=== PATIENT | female | born 1930 | race Caucasian/White ===

== ENCOUNTER 2016-08-07 14:05 | Outpatient (CLI) | payer MEDICARE, OTHER ==
[2016-08-08] MEDS ORDERED: SODIUM CHLORIDE 0.9% 500ML 500 ML IVS ONE (07:15)
[2016-08-08] MEDS ORDERED: ACETAMINOPHEN 325 MG TAB PO ONE (08:10)
[2016-08-08] MEDS ORDERED: diphenhydrAMINE HCL 50 MG/ML VIAL IV ONE (08:25)
[2016-08-08 12:37] VITALS: O2SAT 100
[2016-08-08 14:15] VITALS: BP 130/77; TEMP 99.8
== END 2016-08-08 14:15 | disposition home or self-care (01) ==
LOC: TXRM 14:05
PROVIDERS: ATTEND Family Medicine
PROC: 30233N1 Transfusion of Nonautologous Red Blood Cells into Peripheral Vein, Percutaneous Approach (ICD-10-PCS; principal; 2016-08-08 07:30)
DX: D64.89 Other specified anemias (principal)
CPT/HCPCS: 36415; 36430; 86850; 86900; 86901; 86922; 87798; J1200; J7040; P9016

== ENCOUNTER → 2016-08-24 | Outpatient (CLI) | payer MEDICARE, OTHER ==
[~2016-08-24] MED LIST: ACETAMINOPHEN 325 MG TAB PO ONE; SODIUM CHLORIDE 0.9% 500ML 500 ML IVS ONE; diphenhydrAMINE HCL 50 MG/ML VIAL IV ONE
[2016-08-25 06:05] VITALS: BP 126/74; TEMP 98.5; O2SAT 100
== END | disposition home or self-care (01) ==
LOC: TXRM 15:29
PROVIDERS: ATTEND Family Medicine
DX: D64.9 Anemia, unspecified (principal)
CPT/HCPCS: 36415; 86850; 86900; 86901; 86922; J1200; J7040; P9016

== ENCOUNTER 2016-09-12 10:13 | Outpatient (CLI) | payer MEDICARE, OTHER ==
[2016-09-12] MEDS ORDERED: SODIUM CHLORIDE 0.9% 500ML 500 ML IVS ONE (10:48)
[2016-09-12] MEDS ORDERED: ACETAMINOPHEN 325 MG TAB PO ONE (11:22)
[2016-09-12] MEDS ORDERED: diphenhydrAMINE HCL 50 MG/ML VIAL IV ONE (12:25)
[2016-09-12 18:39] VITALS: BP 127/74; TEMP 97.9; O2SAT 100
== END 2016-09-12 18:20 | disposition home or self-care (01) ==
LOC: AMB 10:13
PROVIDERS: ATTEND Family Medicine
PROC: 30233N1 Transfusion of Nonautologous Red Blood Cells into Peripheral Vein, Percutaneous Approach (ICD-10-PCS; principal; 2016-09-12 10:15)
DX: D50.8 Other iron deficiency anemias (principal)
CPT/HCPCS: 36415; 36430; 86850; 86900; 86901; 86922; G0463; J1200; J7040; P9016

== ENCOUNTER 2016-10-17 11:30 | Outpatient (CLI) | payer MEDICARE, OTHER ==
[2016-10-17] MEDS ORDERED: diphenhydrAMINE HCL 50 MG/ML VIAL IV ONE (14:17)
[2016-10-17] MEDS: diphenhydrAMINE HCL 50 MG/ML VIAL IV ONE (14:18)
[2016-10-17] MEDS: ACETAMINOPHEN 325 MG TAB PO ONE (14:18)
[2016-10-17] MEDS ORDERED: ACETAMINOPHEN 325 MG TAB PO ONE (14:18)
[2016-10-17] MEDS ORDERED: SODIUM CHLORIDE 0.9% 500ML 500 ML IVPB ONE (14:29)
[2016-10-17 22:36] VITALS: BP 134/68; TEMP 97.2; O2SAT 97
== END 2016-10-17 22:30 | disposition home or self-care (01) ==
LOC: TXRM 11:30
PROVIDERS: ATTEND Family Medicine
PROC: 30233N1 Transfusion of Nonautologous Red Blood Cells into Peripheral Vein, Percutaneous Approach (ICD-10-PCS; principal; 2016-10-17)
DX: D50.8 Other iron deficiency anemias (principal)

== ENCOUNTER → 2016-11-06 | Outpatient (CLI) | payer MEDICARE, OTHER | END | disposition home or self-care (01) | LOC: GMAH 14:40 | PROVIDERS: ATTEND Family Medicine | DX: D50.8 Other iron deficiency anemias (principal) ==

== ENCOUNTER → 2016-11-09 | Outpatient (CLI) | payer MEDICARE, OTHER ==
[~2016-11-09] MED LIST changes: -ACETAMINOPHEN 325 MG TAB PO ONE; +ACETAMINOPHEN SUPPOSITORY 325 MG PR ONE
[2016-11-10 04:08] VITALS: BP 98/56; TEMP 98.1; O2SAT 99
== END | disposition home or self-care (01) ==
LOC: TXRM 15:35
PROVIDERS: ATTEND Family Medicine
PROC: 30233N1 Transfusion of Nonautologous Red Blood Cells into Peripheral Vein, Percutaneous Approach (ICD-10-PCS; principal; 2016-11-09)
DX: D50.8 Other iron deficiency anemias (principal)
CPT/HCPCS: 36415; 36430; 86850; 86900; 86901; 86922; J1200; J7040; P9016

== ENCOUNTER → 2016-11-13 | Outpatient (CLI) | payer MEDICARE, OTHER | END | disposition home or self-care (01) | LOC: GMAH 14:37 | PROVIDERS: ATTEND Family Medicine | DX: D50.8 Other iron deficiency anemias (principal) ==

== ENCOUNTER → 2016-11-20 | Outpatient (CLI) | payer MEDICARE, OTHER | END | disposition home or self-care (01) | LOC: GMAH 17:04 | PROVIDERS: ATTEND Family Medicine | DX: D50.8 Other iron deficiency anemias (principal) ==

== ENCOUNTER 2016-11-24 19:33 | Emergency (ER) | payer MEDICARE, OTHER ==
[~2016-11-24 19:33] MED LIST changes: +ACETAMINOPHEN 325 MG TAB ONE; -SODIUM CHLORIDE 0.9% 500ML 500 ML IVS ONE; +SODIUM CHLORIDE 0.9% 500ML 500 ML ONE; +diphenhydrAMINE HCL 50 MG/ML VIAL ONE
[2016-11-24] MEDS ORDERED: ACETAMINOPHEN 325 MG TAB PO ONE (19:59)
[2016-11-24] MEDS ORDERED: methylPREDNISolone SODIUM SUC 125 MG/2 ML VIAL IV ONE (19:59)
--- NOTE | 2016-11-24 20:28 | RAD ---
EXAM: Single view chest. INDICATION: Chest pain. COMPARISON: Chest x-ray: 05/08/2016. FINDINGS: Cardiac silhouette: Unremarkable. Cait: Unremarkable. Lobar consolidation: None. Pleural effusion: None. Pneumothorax: None. Other: Calcified hilar mediastinal lymph nodes are noted. Bones: Demineralized. 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 No acute cardiopulmonary process. 2. Moderate size hiatal hernia Electronically signed by: Johnnie Mcintosh MD 11/24/2016 8:27 PM CDT
[2016-11-24 21:14] VITALS: O2SAT 95
[2016-11-24] MEDS ORDERED: HEPARIN SODIUM (PORCINE) 5,000 U/ML VIAL IV ONE (21:41)
[2016-11-24] MEDS ORDERED: SODIUM CHLORIDE 0.9% 10 ML VIAL ONE (22:01)
--- NOTE | 2016-11-24 22:35 | ED.PDOC ---
History of Present Illness - General Chief Complaint: Fever Stated Complaint: fever, generalized weakness Time Seen by Provider: 11/24/16 19:39 Source: patient Exam Limitations: no limitations - History of Present Illness Timing/Duration: 4-6 hours Severity: moderate Improving Factors: immobilization, rest Worsening Factors: movement Associated Symptoms: chest pain - mild, fever/chills, loss of appetite, malaise , shortness of breath Allergies/Adverse Reactions: Allergies Horse-derived Products Allergy (Verified 09/13/15 16:12) HORSE-DERIVED PRODUCTS INCLUDES HORSE SERUM Home Medications: Ambulatory Orders Cyanocobalamin [Vitamin B-12] 1,000 mcg SL DAILY 08/17/15 HYDROcodone 10MG/APAP 325MG [[place] 10/325] 1 tab PO Q4H PRN 08/17/15 Magnesium Hydroxide [Milk Of Magnesia] 60 ml PO DAILY PRN 08/17/15 Multiple Vitamin [One Daily] 1 tab PO DAILY 04/04/16 Polyethylene Glycol 3350 [Miralax] 17 gm PO BEDTIME 04/04/16 Review of Systems - Review of Systems Constitutional: States: fever, malaise, weakness EENTM: States: no symptoms reported Respiratory: States: short of breath Cardiology: States: chest pain - mild Gastrointestinal/Abdominal: States: no symptoms reported Genitourinary: States: no symptoms reported Musculoskeletal: States: no symptoms reported Skin: States: no symptoms reported Neurological: States: other - dizziness Endocrine: States: intolerance to cold All other Systems: No Change from Baseline Past Medical History (General) - Patient Medical History Hx Seizures: No Hx Stroke: No Hx Dementia: No Hx Asthma: No Hx of COPD: No Hx Cardiac Disorders: No Hx Congestive Heart Failure: No Hx Pacemaker: No Hx Hypertension: No Hx Thyroid Disease: No Hx Diabetes: No Hx Renal Disease: No Hx Cancer: Yes - Leukemia- MDS Hx of HIV: No Hx Hepatitis C: No Hx MRSA: No Surgical History: other - Vaccination History Hx Tetanus, Diphtheria Vaccination: No Hx Influenza Vaccination: No Hx Pneumococcal Vaccination: Yes - Social History Hx Tobacco Use: Yes Hx Alcohol Use: Yes - occasionally Hx Substance Use: No Hx Substance Use Treatment: No Hx Depression: No Hx Physical Abuse: No Hx Emotional Abuse: No - Female History Patient : No Family Medical History - Family History Father Family History: Unknown Living Status: Physical Exam - Physical Exam General Appearance: Alert, Frail, Ill Appearing Eye Exam: bilateral normal Ears, Nose, Throat: hearing grossly normal, normal ENT inspection, normal pharynx Neck: non-tender, full range of motion, supple Respiratory: chest non-tender, lungs clear, normal breath sounds, no respiratory distress, no accessory muscle use Cardiovascular/Chest: normal peripheral pulses, regular rate, rhythm, no edema Peripheral Pulses: radial,right: 2+, radial,left: 2+, dorsalis pedis,right: 2+, dorsalis pedis,left: 2+ Gastrointestinal/Abdominal: non tender, soft Rectal Exam: deferred Back Exam: normal inspection, no CVA tenderness, no vertebral tenderness Extremity: normal range of motion, non-tender, normal inspection, no pedal edema , normal capillary refill Neurologic: slasher tender helper II-XII nml as tested, alert, oriented x 3 Skin Exam: pallor Comments: Vital Signs - 24 hr 11/24/16 11/24/16 11/24/16 10:30 13:45 14:00 Temperature 99.0 F 100.9 F H 100.5 F H Pulse Rate Pulse Rate [ 68 63 63 Left Apical] Respiratory 12 14 16 Rate Blood Pressure 122/77 98/61 95/57 [Left Arm] O2 Sat by Pulse 96 100 99 Oximetry 11/24/16 11/24/16 11/24/16 14:15 14:45 15:45 Temperature 100.5 F H 100.5 F H 99.8 F H Pulse Rate Pulse Rate [ 63 56 L 56 L Left Apical] Respiratory 16 14 16 Rate Blood Pressure 95/57 91/58 [Left Arm] O2 Sat by Pulse 99 100 100 Oximetry 11/24/16 11/24/16 11/24/16 15:50 16:05 16:35 Temperature 98.3 F 98.7 F 98.4 F Pulse Rate Pulse Rate [ 59 L 56 L 64 Left Apical] Respiratory 16 16 16 Rate Blood Pressure 97/54 110/67 157/72 [Left Arm] O2 Sat by Pulse 99 99 Oximetry 11/24/16 11/24/16 11/24/16 18:10 19:55 21:10 Temperature 98.4 F 101.7 F H 101 F H Pulse Rate 85 Pulse Rate [ 77 80 84 Left Apical] Respiratory 16 22 24 Rate Blood Pressure 122/72 148/77 85/52 [Left Arm] O2 Sat by Pulse 98 92 L 95 Oximetry 11/24/16 22:07 Temperature 101 F H Pulse Rate 85 Pulse Rate [ 72 Left Apical] Respiratory 24 Rate Blood Pressure 97/46 [Left Arm] O2 Sat by Pulse 95 Oximetry Progress - Progress Progress: 11/24/16 22:42 the patient is an 86-year-old female presenting to the emergency room secondary to fever, headaches, weakness and shortness of breath. The initial concern was for a transfusion reaction. The patient received Tylenol and steroids immediately. The patient also received oxygen as her oxygen levels were mildly low. The patient did start feeling somewhat better. Blood pressures did drop moderately but the patient was feeling better. 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 Arrangements were made to transfer the patient to [facility] with [facility] where her oncologist is. In the end the patient and family both decided that they would take her home. they do understand this is possibly a life-threatening situation. The patient does not want to be in the hospital. Her wishes will be honored. She may benefit from oxygen if it can be found tomorrow. ER warnings were given. - Results/Orders Results/Orders: Laboratory Tests 11/24/16 11/24/16 11/24/16 10:44 20:20 20:20 WBC 5.3 RBC 3.94 L Hgb 11.0 L Hct 32.7 L MCV 83.0 MCH 27.9 MCHC 33.6 RDW 15.6 H Plt Count 118 L MPV 7.5 Absolute Neuts (auto) Not Reportable Absolute Lymphs (auto) Not Reportable Absolute Monos (auto) Not Reportable Absolute Eos (auto) Not Reportable Neutrophils % Not Reportable Neutrophils % (Manual) 43.0 Lymphocytes % Not Reportable Lymphocytes % (Manual) 15.0 Monocytes % Not Reportable Monocytes % (Manual) 3.0 Eosinophils % Not Reportable Basophils % Not Reportable Band Neutrophils 39.0 PTT (SP) D-Dimer, Quantitative Sodium Potassium Chloride Carbon Dioxide Anion Gap BUN Creatinine BUN/Creatinine Ratio Random Glucose Serum Osmolality Calcium Total Bilirubin AST ALT Alkaline Phosphatase LD Total Creatine Kinase 197 H CK-MB (CK-2) 4.4 CK-MB (CK-2) % 2.23 Troponin I 0.05 B-Natriuretic Peptide 289.0 H* Serum Total Protein Albumin Globulin Albumin/Globulin Ratio Urine Color Urine Appearance Urine pH Ur Specific [place] Urine Protein Urine Glucose (UA) Urine Ketones Urine Blood Urine Nitrite Urine Bilirubin Urine Urobilinogen Ur Leukocyte Esterase Urine RBC Urine WBC Ur Epithelial Cells Urine Bacteria Patient ABO/Rh A POSITIVE Antibody Screen Negative EULALIA, Poly Interpret Crossmatch See Detail 11/24/16 11/24/16 11/24/16 20:20 20:20 20:20 WBC RBC Hgb Hct MCV MCH MCHC RDW Plt Count MPV Absolute Neuts (auto) Absolute Lymphs (auto) Absolute Monos (auto) Absolute Eos (auto) Neutrophils % Neutrophils % (Manual) Lymphocytes % Lymphocytes % (Manual) Monocytes % Monocytes % (Manual) Eosinophils % Basophils % Band Neutrophils PTT (SP) 25.6 D-Dimer, Quantitative 5865 H* Sodium Potassium Chloride Carbon Dioxide Anion Gap BUN Creatinine BUN/Creatinine Ratio Random Glucose Serum Osmolality Calcium Total Bilirubin AST ALT Alkaline Phosphatase LD Total 242 H Creatine Kinase CK-MB (CK-2) CK-MB (CK-2) % Troponin I B-Natriuretic Peptide Serum Total Protein Albumin Globulin Albumin/Globulin Ratio Urine Color Urine Appearance Urine pH Ur Specific [place] Urine Protein Urine Glucose (UA) Urine Ketones Urine Blood Urine Nitrite Urine Bilirubin Urine Urobilinogen Ur Leukocyte Esterase Urine RBC Urine WBC Ur Epithelial Cells Urine Bacteria Patient ABO/Rh Antibody Screen EULALIA, Poly Interpret Negative Crossmatch 11/24/16 11/24/16 11/24/16 20:20 20:49 21:09 WBC RBC Hgb Hct MCV MCH MCHC RDW Plt Count MPV Absolute Neuts (auto) Absolute Lymphs (auto) Absolute Monos (auto) Absolute Eos (auto) Neutrophils % Neutrophils % (Manual) Lymphocytes % Lymphocytes % (Manual) Monocytes % Monocytes % (Manual) Eosinophils % Basophils % Band Neutrophils PTT (SP) D-Dimer, Quantitative Sodium 133 L Potassium 4.2 Chloride 109 Carbon Dioxide 15 L Anion Gap 13.2 BUN 49 H Creatinine 1.49 H BUN/Creatinine Ratio 32.9 H Random Glucose 130 H Serum Osmolality 281.1 Calcium 8.3 L Total Bilirubin 1.3 H AST 22 ALT 19 Alkaline Phosphatase 73 LD Total Creatine Kinase CK-MB (CK-2) CK-MB (CK-2) % Troponin I B-Natriuretic Peptide Serum Total Protein 7.1 Albumin 3.6 Globulin 3.5 Albumin/Globulin Ratio 1.0 L Urine Color Yellow Urine Appearance Clear Urine pH 6.5 Ur Specific [place] 1.015 Urine Protein 30 Urine Glucose (UA) Negative Urine Ketones Negative Urine Blood Small H Urine Nitrite Negative Urine Bilirubin Negative Urine Urobilinogen 0.2 Ur Leukocyte Esterase Negative Urine RBC 1-3 Urine WBC 0 Ur Epithelial Cells 0 Urine Bacteria 0 Patient ABO/Rh A POSITIVE Antibody Screen Negative EULALIA, Poly Interpret Crossmatch chest x-ray shows no definitive acute pathology. Departure - Departure Clinical Impression: Pulmonary emboli Qualifiers: Pulmonary embolism type: other Chronicity: acute Acute cor pulmonale presence: with acute cor pulmonale Qualified Code(s): I26.09 - Other pulmonary embolism with acute cor pulmonale Disposition: Discharge to Home or Self Care Condition: Serious Departure Forms: ED Discharge - Pt. Copy, Patient Portal Self Enrollment Instructions: DI for Deep Vein Thrombosis Diet: regular diet Activity: no exercise Referrals: Jasiel Dahl MD [Primary Care Provider] - 1-2 Days Home Medications: Ambulatory Orders Cyanocobalamin [Vitamin B-12] 1,000 mcg SL DAILY 08/17/15 HYDROcodone 10MG/APAP 325MG [[place] 10/325] 1 tab PO Q4H PRN 08/17/15 Magnesium Hydroxide [Milk Of Magnesia] 60 ml PO DAILY PRN 08/17/15 Multiple Vitamin [One Daily] 1 tab PO DAILY 04/04/16 Polyethylene Glycol 3350 [Miralax] 17 gm PO BEDTIME 04/04/16 Additional Instructions: the patient is an 86-year-old female presenting to the emergency room secondary to fever, headaches, weakness and shortness of breath. The initial concern was for a transfusion reaction. The patient received Tylenol and steroids immediately. The patient also received oxygen as her oxygen levels were mildly low. The patient did start feeling somewhat better. Blood pressures did drop moderately but the patient was feeling better. 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 Arrangements were made to transfer the patient to [facility] with [facility] where her oncologist is. In the end the patient and family both decided that they would take her home. they do understand this is possibly a life-threatening situation. The patient does not want to be in the hospital. Her wishes will be honored. She may benefit from oxygen if it can be found tomorrow. ER warnings were given.
[2016-11-24] MEDS ORDERED: APIXABAN 2.5 MG TAB PO ONE (22:45)
[2016-11-24 23:18] VITALS: BP 100/58; TEMP 99.8
== END 2016-11-24 23:17 | disposition home or self-care (01) ==
LOC: ER 19:33
DX: I26.09 Other pulmonary embolism with acute cor pulmonale (principal); C94.6 Myelodysplastic disease, not elsewhere classified; Z87.891 Personal history of nicotine dependence; Z88.7 Allergy status to serum and vaccine; Z79.899 Other long term (current) drug therapy
CPT/HCPCS: 36415; 71010; 80053; 81001; 82550; 82553; 83615; 83880; 84484; 85025; 85045; 85379; 85730; 86850; 86880; 86900; 86901; 86922; 87040; 93005; G0463; J1200; J1644; J2930; J7040; P9016

== ENCOUNTER → 2016-11-24 | Day surgery (SDC) | payer MEDICARE, OTHER ==
[~2016-11-24] MED LIST changes: +ACETAMINOPHEN 325 MG TAB PO ONE; -ACETAMINOPHEN SUPPOSITORY 325 MG PR ONE
== END | disposition home or self-care (01) ==
LOC: GMAH 10:11 → TXRM 10:22
PROVIDERS: ATTEND Family Medicine
DX: D50.8 Other iron deficiency anemias (principal)
CPT/HCPCS: J1200; J7040